=== PATIENT | male | born 1975 | race Caucasian/White ===

== ENCOUNTER 2021-02-03 09:28 | Outpatient (CLI) | payer OTHER ==
[2021-02-03 10:43] LABS: BASOPHILS % (AUTO) 0.7 % (0-1); EOSINOPHILS # (AUTO) 0.1 X10'3 (0-0.9); EOSINOPHILS % (AUTO) 1.5 % (0-6); HEMOGLOBIN 14.6 g/dl (14.0-17.9); LYMPHOCYTES % (AUTO) 28.2 % (21-51); MEAN CORPUSCULAR HEMOGLOBIN 31.3 PG (27.0-31.0); MEAN CORPUSCULAR HGB CONC 33.9 g/dL (33.0-36.5); MEAN CORPUSCULAR VOLUME 92.2 FL (78-98); MEAN PLATELET VOLUME 8.4 FL (7.4-10.4); MONOCYTES # (AUTO) 0.5 X10'3 (0-0.9); MONOCYTES % (AUTO) 6.5 % (2-12); NEUTROPHILS # (AUTO) 4.5 X10'3 (1.8-7.7); NEUTROPHILS % (AUTO) 63.1 % (42-75); PLATELET COUNT 200 X10'3 (140-440); RED BLOOD COUNT 4.66 X10'6 (4.70-6.10); WHITE BLOOD COUNT 7.1 X10'3 (4.5-11.0)
[2021-02-03 10:50] LABS: ALBUMIN 4.3 G/DL (3.4-5.0); ANION GAP 8 (8-16); BLOOD UREA NITROGEN 19 MG/DL (7-18); BUN/CREATININE RATIO 19.6 (5.4-32.0); CALCIUM 9.3 MG/DL (8.5-10.1); CHLORIDE 108 MMOL/L (99-107); CREATININE 0.97 MG/DL (0.60-1.10); GLUCOSE 97 MG/DL (70-104); POTASSIUM 4.3 MMOL/L (3.5-5.1); SODIUM 144 MMOL/L (135-145); eGFR 84 ML/MIN
== END 2021-02-03 23:59 | disposition home or self-care (01) ==
LOC: LAB 09:28
PROVIDERS: ATTEND Orthopaedic Surgery
DX: Z01.818 Encounter for other preprocedural examination (principal); M19.211 Secondary osteoarthritis, right shoulder; M75.01 Adhesive capsulitis of right shoulder
CPT/HCPCS: 36415; 80048; 85025

== ENCOUNTER 2021-12-31 06:28 | Day surgery (SDC) | payer OTHER ==
[2021-12-22 11:59] LABS: BASOPHILS # (AUTO) 0.1 X10'3 (0-0.2); BASOPHILS % (AUTO) 0.7 % (0-1); EOSINOPHILS # (AUTO) 0.2 X10'3 (0-0.9); EOSINOPHILS % (AUTO) 2.3 % (0-6); LYMPHOCYTES # (AUTO) 1.9 X10'3 (1.1-4.8); LYMPHOCYTES % (AUTO) 22.7 % (21-51); MEAN CORPUSCULAR HEMOGLOBIN 31.1 PG (27.0-31.0); MEAN CORPUSCULAR HGB CONC 33.3 g/dL (33.0-36.5); MEAN CORPUSCULAR VOLUME 93.2 FL (78-98); MEAN PLATELET VOLUME 8.5 FL (7.4-10.4); MONOCYTES # (AUTO) 0.6 X10'3 (0-0.9); MONOCYTES % (AUTO) 6.7 % (2-12); NEUTROPHILS # (AUTO) 5.8 X10'3 (1.8-7.7); NEUTROPHILS % (AUTO) 67.6 % (42-75); PRE OP HEMATOCRIT 43.7 % (42.0-52.0); PRE OP HEMOGLOBIN 14.6 g/dL (14.0-17.9); PRE OP PLATELET COUNT 190 X10'3 (140-440); RED BLOOD COUNT 4.69 X10'6 (4.70-6.10); RED CELL DISTRIBUTION WIDTH 13.7 % (11.5-14.5)
[2021-12-22 12:07] LABS: ALBUMIN 3.9 G/DL (3.4-5.0); ALBUMIN/GLOBULIN RATIO 1.3 (1.1-1.5); ALKALINE PHOSPHATASE 62 IU/L (46-116); BLOOD UREA NITROGEN 29 MG/DL (7-18); BUN/CREATININE RATIO 27.4 (5.4-32.0); CALCIUM 9.4 MG/DL (8.5-10.1); CHLORIDE 106 MMOL/L (99-107); CREATININE 1.06 MG/DL (0.60-1.10); PRE OP ALT 49 U/L (30-65); PRE OP ANION GAP 6 (8-16); PRE OP AST 29 U/L (10-37); PRE OP BILIRUB, TOTAL 0.6 MG/DL (0.0-1.0); PRE OP GLUCOSE 62 MG/DL (70-104); PRE OP POTASSIUM 4.1 MMOL/L (3.4-5.1); PRE OP SODIUM 143 MMOL/L (135-145); TOTAL CARBON DIOXIDE 31.2 MMOL/L (24-32); eGFR 76 ML/MIN
[~2021-12-31] VITALS: Ht 175.3 cm; Wt 75.2 kg
[2021-12-31] VITALS (18 sets, daily range): BP systolic 105–136; BP diastolic 64–84
[~2021-12-31 06:28] MED LIST: DEXT20TA6 PO; clindamycin 600mg/D5W 50ml 50 ML IV ONE; famotidine 20mg tablet PO ONE; ringers solution, lacted 1,000 ML IV SCH; tranexamic acid inj. 1,000 MG in normal saline IV soln 100ML IV ONE; vancomycin 1,500 MG in NS 300ml IV soln IV ONE
[2021-12-31] MEDS ORDERED: vancomycin 1,000mg inj ONE (06:39)
[2021-12-31] MEDS ORDERED: BUPIVAcaine/PF 2.5 mg/ml (0.25%) 30ml vial ONE (06:39)
--- NOTE | 2021-12-31 07:30 | NUR ---
PREPARED PT FOR SURGERY, IV STARTED WITHOUT DIFFICULTY, PT SLIGHTLY ANXIOUS. INCENTIVE SPIROMETRY TERACHING PERFORMED, PT VERBALIZED UNDERSTANDING AND WAS ABLE TO RETURN DEMONSTRATE USE OF MACHINE. MEDICATED, RADIAL PULSES MARKED, PT STATES HE USED THE SPECIAL SOAP EACH DAY FOR 5 DAYS PRIOR TO SURGERY AREA PREPPED AND SHAVED BY BENITEZ - PCT TECH PT USED MUROPURICIN IN HIS NOSE DAILY
[2021-12-31] MEDS ORDERED: ROPIVAcaine 0.5% (5mg/ml) 30ml vial ONE (08:15)
[2021-12-31] MEDS ORDERED: ROPIVAcaine 0.2% (10 MG/5 ML) BOLUS INJECTION INTERSCALE PRN (08:20)
[2021-12-31] MEDS ORDERED: ondansetron/PF 4mg/2ml inj IV PRN (08:20)
[2021-12-31] MEDS ORDERED: ringers solution, lacted 1,000 ML IV SCH (08:20)
[2021-12-31] MEDS ORDERED: hydrALAZINE 20mg/ml inj. IV PRN (08:20)
[2021-12-31] MEDS ORDERED: labetalol 20mg/4ml (5mg/ml) syringe IV PRN (08:20)
[2021-12-31] MEDS ORDERED: fentaNYL/PF 50MCG/1 ML 2ML syringe IV PRN ×2 (08:20)
[2021-12-31] MEDS ORDERED: ROPIVAcaine 0.2%/PF PUMP/bolus 545 ML INTERSCALE SCH (08:20)
[2021-12-31] MEDS ORDERED: morphine 4 MG/ML inj SYRINge IV PRN (08:20)
[2021-12-31] MEDS ORDERED: morphine 2 MG/ML inj. syringe IV PRN (08:20)
[2021-12-31] MEDS ORDERED: fentaNYL/PF 50MCG/1 ML 2ML syringe ONE ×3 (08:22→11:09)
[2021-12-31] MEDS ORDERED: midazolam 1 mg/ML 2ml injection ONE (08:22)
[2021-12-31] MEDS ORDERED: propofol inj 20 ML IV ONE (08:23)
[2021-12-31] MEDS ORDERED: LIDOcaine 2% (20mg/ml) 5ml vial ONE (08:24)
[2021-12-31] MEDS ORDERED: ondansetron/PF 4mg/2ml inj ONE (08:29)
[2021-12-31] MEDS ORDERED: dexamethasone sod phosphate 4mg/ml inj. ONE (08:29)
[2021-12-31] MEDS ORDERED: acetaminophen 1,000mg/100ml IV 100 ML IV ONE (09:16)
[2021-12-31] MEDS ORDERED: ketorolac trometh. 30mg/ml inj. ONE (09:36)
--- NOTE | 2021-12-31 11:42 | NUR ---
Received from OR via BED, accompanied by Anesthesiologist and report given by JENNY Anesthesiologist. PATIENT WAKING UP, DENIES PAIN, V/S WNL, SCD ON, 20G TO LEFT HAND, RIGHT SHOULDER DRESSING C/D/I with POWDER PACK AND ARM SLING. ON Q PUMP CATHETER NOTED AND WILL START ROPIVACAINE DRIP AT 2 CC/HR. Addendum: 12/31/21 at 1224 by Salvador Begum RN Amended: Links added.
--- NOTE | 2021-12-31 13:30 | NUR ---
PATIENT COMPLAINED OF DROOPING RIGHT EYELID, SMALLER RIGHT PUPIL. 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 THOSE SYMPTOMS WILL BE GONE THE NERVE BLOCK WEARS OFF.
--- NOTE | 2021-12-31 14:17 | NUR ---
ALL DISCHARGE CRITERIA HAS BEEN MET. VSS, PAIN AT A TOLERABLE LEVEL, ABLE TO SAFELY AMBULATE AND TRANSFER SELF. IV TAKEN OUT WITHOUT ANY COMPLICATIONS. ALL DISCHARGE INSTRUCTIONS, INCLUDING ON-Q PUMP COVERED WITH PATIENT AND ALL QUESTIONS ANSWERED. PATIENT TAKEN OUT VIA WHEELCHAIR WITH ALL BELONGINGS TO PERSONAL VEHICLE WHERE FAMILY DROVE PATIENT HOME. Addendum: 12/31/21 at 1501 by Salvador Begum RN Amended: Links added.
== END 2021-12-31 14:17 | disposition home or self-care (01) ==
LOC: PAS 06:28
PROVIDERS: ATTEND Orthopaedic Surgery
DX: M19.011 Primary osteoarthritis, right shoulder (principal); Z79.899 Other long term (current) drug therapy; Z98.890 Other specified postprocedural states; G89.18 Other acute postprocedural pain; F90.9 Attention-deficit hyperactivity disorder, unspecified type; Z88.0 Allergy status to penicillin
CPT/HCPCS: 23472; 36415; 64415; 76942; 80053; 82948; 85025; 87081; 87811; 93005; C1713; C1776; J0131; J1100; J1885; J2250; J2405; J2704; J2795; J3010; J3370; J3490; J7030; J7040; J7120; Z7506; Z7508; Z7512; A4565; A4618; A7000; C9250